=== PATIENT | male | born 1950 | race Caucasian/White ===

== ENCOUNTER 2024-07-18 08:24 | Outpatient (CLI) | payer MEDICARE, SELFPAY ==
[2024-07-18 10:23] LABS: Vitamin D 25 Hydroxy 38.7 ng/mL
[2024-07-18 11:19] LABS: Alanine Aminotransferase 27 U/L (6-50); Albumin Level 4.5 g/dL (3.5-5.1); Alkaline Phosphatase 61 U/L (38-126); Anion Gap 9 mmol/L (4-12); Aspartate Amino Transferase 33 U/L (17-59); Bilirubin,Total 1.6 mg/dL (0.2-1.3); Blood Urea Nitrogen 22 mg/dL (9-20); Calcium 9.3 mg/dL (8.4-10.2); Carbon Dioxide 26 mmol/L (22-30); Chloride 106 mmol/L (98-107); Cholesterol 198 mg/dL (0-200); Estimated Glomerular Filt Rate > 60; Glucose 98 mg/dL (65-110); HDL Direct 81 mg/dL; Sodium 141 mmol/L (137-145); Triglycerides 52 mg/dL (<150)
[2024-07-18 11:30] LABS: LDL Cholesterol Direct 88 mg/dL
[2024-07-18 11:43] LABS: Prostate Specific Antigen 7.7 ng/mL (< OR = 4.0)
== END 2024-07-18 08:25 | disposition home or self-care (01) ==
LOC: ANHLAB 08:26
PROVIDERS: PCP Emergency Medicine; Visit Provider Emergency Medicine
DX: E78.5 Hyperlipidemia, unspecified (principal); E55.9 Vitamin D deficiency, unspecified; Z12.5 Encounter for screening for malignant neoplasm of prostate
CPT/HCPCS: 36415; 80053; 80061; 82306; 84153; G0103

== ENCOUNTER 2024-07-26 14:33 | Outpatient (CLI) | payer MEDICARE, SELFPAY ==
--- NOTE | ~2024-07-26 | US_ITS ---
EXAMINATION: US carotid duplex BI DATE: 07/26/2024 15:30 INDICATION: Carotid atherosclerosis and stenosis TECHNIQUE: Grayscale, color Doppler, and pulsed Doppler images of the cervical carotid arteries were obtained. The degree of vessel stenosis is placed in one of the following categories: normal, <50%, 5 0-69%, >=70% but less than near-occlusion, near-occlusion, or total occlusion. Note that percent sten osis relative to normal distal artery lumen diameter is indirectly measured from velocity measurement s as described by Roland, et al. Radiology 2003; 229:340-346. COMPARISON: 03/27/2019 FINDINGS: RIGHT: The right common carotid artery (CCA) peak systolic velocity (PSV) is 53 cm/s. The right internal car otid artery (ICA) PSV is 100 cm/s. The right ICA end-diastolic velocity (EDV) is 22 cm/s. The right I CA/CCA PSV ratio is 1.9. Grayscale and color Doppler images yield an estimate of <50% diameter reduct ion from plaque in the ICA. The external carotid artery (ECA) PSV measurement was not recorded. There is antegrade flow in the right vertebral artery. LEFT: The left CCA PSV is 67 cm/s. The left ICA PSV is 100 cm/s. The left ICA EDV is 27 cm/s. The left ICA/ CCA PSV ratio is 1.5. Grayscale and color Doppler images yield an estimate of <50% diameter reduction from plaque in the ICA. The ECA PSV is 219 cm/s. There is antegrade flow in the left vertebral arter y. IMPRESSION: 1. <50% stenosis in the right internal carotid artery. 2. <50% stenosis in the left internal carotid artery. Reviewed, dictated and finalized at location A.
== END 2024-07-26 14:34 | disposition home or self-care (01) ==
PROVIDERS: PCP Emergency Medicine; Visit Provider Emergency Medicine
DX: R09.89 Other specified symptoms and signs involving the circulatory and respiratory systems (principal)
CPT/HCPCS: 93880

== ENCOUNTER 2024-08-11 00:53 | Day surgery (SDC) | payer MEDICARE, SELFPAY ==
[2024-08-01 16:20] VITALS: BMI 23.6
[2024-08-11 08:51] VITALS: BP 147/85; PULSE 92; RESP 18; TEMP 36.9; O2SAT 99
[2024-08-11] MEDS: LACTATED RINGERS 1,000 ML 150 ML IV CONT (08:59)
--- NOTE | 2024-08-11 09:10 | WPDANESEPPF ---
Anes - Initial Pre Proc Eval Procedure: Operation Date: 08/11/24 10:00 Proposed Procedures p Screening Colonoscopy - Dash Woody MD Date/Time: 08/11/24 09:10 Surgeon: Dash Woody MD Pre Op Diagnosis: neoplasm screening Patient Data Age: 74 Gender: M Height: 1.85 m Weight: 78.2 kg Last Vital Signs Temp 36.9 C 08/11/24 08:51 Pulse 92 08/11/24 08:51 Resp 18 08/11/24 08:51 BP 147/85 H 08/11/24 08:51 Pulse Ox 99 08/11/24 08:51 O2 Del Method Room Air 08/11/24 08:51 Allergies Allergy/AdvReac Type Severity Reaction Status Date / Time hydrocodone Allergy Unknown Nausea and Verified 08/11/24 08:49 Vomiting Penicillins Allergy Unknown Hives Verified 08/11/24 08:49 morphine AdvReac Mild NAUSEA AND Verified 08/11/24 08:49 VOMITING oxycodone AdvReac Mild NAUSEA AND Verified 08/11/24 08:49 VOMITING tramadol AdvReac Mild NAUSEA AND Verified 08/11/24 08:49 VOMITING Home Medications Medication Instructions Recorded Confirmed Type aspirin 81 mg tablet,delayed 81 mg PO DAILY 07/13/24 08/11/24 History release atorvastatin 20 mg tablet 20 mg PO DAILY 07/13/24 08/11/24 History benazepril 40 mg tablet 40 mg PO DAILY 07/13/24 08/11/24 History hydrochlorothiazide 12.5 mg tablet 12.5 mg PO DAILY 07/13/24 08/11/24 History ascorbic acid (vitamin C) 1 tab-cap PO DAILY 08/01/24 08/11/24 History glucosamine sulf dipot 2 cap PO DAILY 08/01/24 08/11/24 History chlr,msm,chond 550 mg-C 30 mg-indiana 1 mg capsule (Glucosamine Chondroitin) potassium gluconate 600 mg (99 mg) 600 mg PO DAILY 08/01/24 08/11/24 History tablet vitamin B complex 1 tablet PO DAILY 08/01/24 08/11/24 History Patient hx anesthesia problems: none Family hx anesthesia problems: none Results Review: All pre-operative results and documents have been reviewed as part of the pre-operative evaluation. [facility] Past Medical History Medical History Actinic keratosis of left holiness Acute nasopharyngitis (common cold) Acute viral conjunctivitis of both eyes Carotid artery disease Chronic bilateral low back pain without sciatica Chronic pain of right knee Dyslipidemia, goal LDL below 100 Elevated blood sugar level Elevated glucose Elevated prostate specific antigen (PSA) Essential (primary) hypertension Immunization counseling Laceration of face Monoarthritis, not elsewhere classified, unspecified knee Nonintractable headache Occlusion and stenosis of right carotid artery Other hyperlipidemia Pityriasis rosea Post-nasal drip Screening for blood or protein in urine Urinary retention Visit for suture removal Surgical History Surgical History H/O rotator cuff surgery History of carotid endarterectomy History of partial knee replacement Family History Family History Sibling Patient's sister is in good health Family history of chronic obstructive pulmonary disease Patient's sister is Patient's brother is Acute myocardial infarction Mother Family history of chronic obstructive pulmonary disease Patient's mother is Father Patient's father is Social History Social History Smoking status: Never smoker Alcohol intake: current Drinks per week: 5 Substance use: never Substance use type: does not use Do You Feel Safe in your Home?: Yes Lack of Transportation: No Lack of Food: Never True Current Housing: I Have Housing Concerned About Future Housing: No Difficulty Paying Gas/Electric Bills: No Difficulty Paying for Meds: No Currently Unemployed: YES Education: Associate Degree Difficulty w/ Childcare or Family Care: No Living arrangements: with family Spiritual care concerns: No Anes - Eval Final PreProcedure Day of Procedure 08/11/24 09:10 Patient weight: normal Heart: regular rate and rhythm Lungs: clear to auscultation Airway: Mallampati scale class II Neurological: alert and oriented Last oral intake: >/= 8 hours ASA classification: II Emergent: no Anesthetic plan: proceed Anesthesia type and monitoring: general GIVS and standard monitoring Results Review: All pre-operative results and documents have been reviewed as part of the pre-operative evaluation. Informed Consent: The patient's anesthetic plan and its attendant risks and benefits were discussed with the patient/family/POA. Questions were solicited and answers provided to the satisfaction of the patient/family/POA.
--- NOTE | 2024-08-11 09:49 | P.HP_ITS ---
H&P: HPI History of Present Illness Date/Time: 08/11/24 09:49 Chief Complaint: history of colon polyps Narrative: The patient has a history of colonic polyps, the last colonoscopy was 4 years ago Review of Systems Review of Systems: All systems reviewed & are unremarkable except as noted in HPI and below PMFSH Past Medical History Medical History Actinic keratosis of left gnosticist Acute nasopharyngitis (common cold) Acute viral conjunctivitis of both eyes Carotid artery disease Chronic bilateral low back pain without sciatica Chronic pain of right knee Dyslipidemia, goal LDL below 100 Elevated blood sugar level Elevated glucose Elevated prostate specific antigen (PSA) Essential (primary) hypertension Immunization counseling Laceration of face Monoarthritis, not elsewhere classified, unspecified knee Nonintractable headache Occlusion and stenosis of right carotid artery Other hyperlipidemia Pityriasis rosea Post-nasal drip Screening for blood or protein in urine Urinary retention Visit for suture removal Surgical History Surgical History H/O rotator cuff surgery History of carotid endarterectomy History of partial knee replacement Family History Family History Sibling Patient's sister is in good health Family history of chronic obstructive pulmonary disease Patient's sister is Patient's brother is Acute myocardial infarction Mother Family history of chronic obstructive pulmonary disease Patient's mother is Father Patient's father is Social History Social History Smoking status: Never smoker Alcohol intake: current Drinks per week: 5 Substance use: never Substance use type: does not use Do You Feel Safe in your Home?: Yes Lack of Transportation: No Lack of Food: Never True Current Housing: I Have Housing Concerned About Future Housing: No Difficulty Paying Gas/Electric Bills: No Difficulty Paying for Meds: No Currently Unemployed: YES Education: Associate Degree Difficulty w/ Childcare or Family Care: No Living arrangements: with family Spiritual care concerns: No Meds Home Medications and Allergies Home Medications Medication Instructions Recorded Confirmed Type aspirin 81 mg tablet,delayed 81 mg PO DAILY 07/13/24 08/11/24 History release atorvastatin 20 mg tablet 20 mg PO DAILY 07/13/24 08/11/24 History benazepril 40 mg tablet 40 mg PO DAILY 07/13/24 08/11/24 History hydrochlorothiazide 12.5 mg tablet 12.5 mg PO DAILY 07/13/24 08/11/24 History ascorbic acid (vitamin C) 1 tab-cap PO DAILY 08/01/24 08/11/24 History glucosamine sulf dipot 2 cap PO DAILY 08/01/24 08/11/24 History chlr,msm,chond 550 mg-C 30 mg-indiana 1 mg capsule (Glucosamine Chondroitin) potassium gluconate 600 mg (99 mg) 600 mg PO DAILY 08/01/24 08/11/24 History tablet vitamin B complex 1 tablet PO DAILY 08/01/24 08/11/24 History Allergies Allergy/AdvReac Type Severity Reaction Status Date / Time hydrocodone Allergy Unknown Nausea and Verified 08/11/24 08:49 Vomiting Penicillins Allergy Unknown Hives Verified 08/11/24 08:49 morphine AdvReac Mild NAUSEA AND Verified 08/11/24 08:49 VOMITING oxycodone AdvReac Mild NAUSEA AND Verified 08/11/24 08:49 VOMITING tramadol AdvReac Mild NAUSEA AND Verified 08/11/24 08:49 VOMITING Vital Signs Vital Signs - 24 hr 08/11/24 08:51 Temperature 98.5 F Pulse Rate 92 Respiratory Rate 18 Blood Pressure 147/85 H Pulse Oximetry 99 Oxygen Delivery Room Air Exam Const: General: cooperative and healthy appearing Resp: Effort & Inspection: normal respiratory effort and able to speak in complete sentences Auscultation: clear to auscultation bilaterally Cardio: Rate: regular rate Rhythm: regular rhythm GI: Inspection: normal to inspection GI Palp: No No hepatosplenomegaly present Auscultation: normal bowel sounds Rectal Exam: deferred Skin: General skin exam: normal color Psych: Appearance: grossly normal Mental Status: mental status grossly normal Assessment and Plan Assessment and plan (1) History of colonic polyps: Code(s): Z86.0100 - Personal history of colon polyps, unspecified Status: Acute Assessment and Plan: The patient is deemed a good candidate for the procedure. Consent signed. Will proceed.
[2024-08-11 10:13] VITALS: BP 86/56; PULSE 73; RESP 22; O2SAT 97
[2024-08-11 10:23] VITALS: BP 102/49; PULSE 74; RESP 16; O2SAT 99
[2024-08-11 10:33] VITALS: BP 113/63; PULSE 71; RESP 12; O2SAT 100
== END 2024-08-11 11:00 | disposition home or self-care (01) ==
PROVIDERS: PCP Emergency Medicine; Visit Provider Internal Medicine Gastroenterology
PROC: 0DJD8ZZ Inspection of Lower Intestinal Tract, Via Natural or Artificial Opening Endoscopic (ICD-10-PCS; CPT 45378; principal; 2024-08-11 10:00)
DX: Z12.11 Encounter for screening for malignant neoplasm of colon (principal); D12.8 Benign neoplasm of rectum; K57.30 Diverticulosis of large intestine without perforation or abscess without bleeding; I25.10 Atherosclerotic heart disease of native coronary artery without angina pectoris; I10 Essential (primary) hypertension; E78.2 Mixed hyperlipidemia; Z79.82 Long term (current) use of aspirin
CPT/HCPCS: 45385; 88305; J2003; J2704; J7120

== ENCOUNTER 2024-10-17 09:56 | Outpatient (CLI) | payer MEDICARE, SELFPAY ==
[2024-10-17 10:53] LABS: Alanine Aminotransferase 27 U/L (6-50); Albumin Level 4.3 g/dL (3.5-5.1); Alkaline Phosphatase 69 U/L (38-126); Anion Gap 7 mmol/L (4-12); Aspartate Amino Transferase 30 U/L (17-59); Bilirubin,Total 2.1 mg/dL (0.2-1.3); Blood Urea Nitrogen 22 mg/dL (9-20); Calcium 9.1 mg/dL (8.4-10.2); Carbon Dioxide 29 mmol/L (22-30); Chloride 101 mmol/L (98-107); Cholesterol 180 mg/dL (0-200); Estimated Glomerular Filt Rate > 60; Glucose 109 mg/dL (65-110); HDL Direct 75 mg/dL; Potassium 4.1 mmol/L (3.4-5.0); Sodium 137 mmol/L (137-145); Triglycerides 53 mg/dL (<150)
[2024-10-17 11:04] LABS: LDL Cholesterol Direct 79 mg/dL
[2024-10-17 11:24] LABS: Vitamin D 25 Hydroxy 44.4 ng/mL
--- OUTSIDE RECORDS SUMMARY | 2024-10-20 12:37 | XMS_ITS | Referral Summary ---
Author Organization [facility] Address [address] [place] [address] Care Team Providers Care Oncology Pharmacist Name Role Phone Unavailable Primary Care Provider Unavailabl e Source Comments [facility],non-[facility] Affiliates and Associated Physician Practices is amultiple site organization consisting of ambulatory clinics and hospital sitesin [place], [place], [place] and [place]. This disclosure is being madepursuant to the Care Everywhere program and may not contain all information available regarding this patient. Last updated 18.[facility] [employer] Social History Tobacco Use Types Packs/Day Years Used Date Smoking Tobacco: Never Assessed Sex and Gender Information Value Date Recorded Sex Assigned at Not on file Gender Identity Not on file Sexual Orientation Not on file Plan of Treatment Not on file
--- OUTSIDE RECORDS SUMMARY | 2024-10-20 12:37 | XMS_ITS | Clinical Summary ---
Author Organization [facility] Address [address] [address] Care Team Providers Care Glass Blowing Instructor Name Role Phone Unavailable Primary Care Provider Unavailabl e Source Comments [facility],non-owned Affiliates and Associated Physician Practices is amultiple site organization consisting of ambulatory clinics and hospital sitesin [place], [place], [place] and [place]. This disclosure is being madepursuant to the Care Everywhere program and may not contain all information available regarding this patient. Last updated 18.[facility] [employer] Social History Tobacco Use Types Packs/Day Years Used Date Smoking Tobacco: Never Assessed Sex and Gender Information Value Date Recorded Sex Assigned at Not on file Gender Identity Not on file Sexual Orientation Not on file Plan of Treatment Health Maintenance Due Date Last Done Comments HEPATITIS C SCREENING 02/07/1966 DTAP/TDAP/TD VACCINES (1 - Tdap) 02/11/1967 PNEUMOCOCCAL VACCINE 50+ (1 of 1 - PCV) 02/11/1998 ZOSTER VACCINE (1 of 2) 02/11/1998 Respiratory Syncytial Virus (RSV) Vaccine Pt: or over 60 yrs (1 - 1-dose 75+ series) 02/11/2023 COVID-19 VACCINE ( - 2023-2 5 season) 2024 INFLUENZA VACCINE (#1) 2024 DEPRESSION SCREENING 09/28/2024 MEDICARE AWV ? CALENDAR YEAR 2024 HEPATITIS B VACCINE Aged Out No longe r eligible based on patient's age to complete this topic HIB VACCINE Aged Out No longer eligi ble based on patient's age to complete this topic HPV VACCINE Aged Out No longer eligi ble based on patient's age to complete this topic MENINGOCOCCAL (Group B) VACCINE Aged Out No longer eligible based on patient's age to complete this topic MENINGOCOCCAL VACCINE Aged Out No jp anson eligible based on patient's age to complete this topic
--- OUTSIDE RECORDS SUMMARY | 2024-10-20 12:37 | XMS_ITS | Patient Health Summary ---
Author Organization [facility] Address [address] [place] [address] Care Team Providers Care Record Changer Tester Name Role Phone Unavailable Primary Care Provider Unavailabl e Note from [facility],non-owned Affiliates and Associated Physician Practices is amultiple site organization consisting of ambulatory clinics and hospital sitesin [place], [place], [place] and [place]. This disclosure is being madepursuant to the Care Everywhere program and may not contain all information available regarding this patient. Last updated 18.[facility] Social History Tobacco Use Types Packs/Day Years Used Date Smoking Tobacco: Never Assessed Sex and Gender Information Value Date Recorded Sex Assigned at Not on file Gender Identity Not on file Sexual Orientation Not on file Procedures * PATH CONSULT REFER SPECIMEN(Performed 05/21/1995) Results * PATH CONSULT REFER SPECIMEN (05/21/1995 9:50 AM CDT) Result CASE NUMBER [id number] [facility] PATH REPORT Comment: ORDERING PHYSICIAN ??[facility] SPECIMEN TYPE ?Muscle Biopsy ?THIS IS A CORRECTED REPORT ?? FOR PREVIOUSLY REPORTED VALUES, SEE [place] SYSTEM CLINICAL HISTORY ? Rule out Malini Gehrig disease. GROSS DESCRIPTION ? Please see technique section. *TECHNIQUE ? Frozen muscle was transported to [facility]. ??An H/E stain on the frozen sections was performed. Severe freeze artifact precludes further histochemical analysis. MICROSCOPIC DESCRIPTION ? Examination of the frozen and paraffin sections which were requested from [facility] reveals some variation in myofiber size with fiber diameters ranging from 70 to 120 microns. ??Occasional atrophic, angular fibers are present but groups of atrophic fibers are not seen. ??Occasional enlarged sarcolemmal nuclei are seen. ??(DEM/akn) DIAGNOSIS ? DIAGNOSIS ?? MUSCLE BIOPSY ? - SEE MICROSCOPIC DESCRIPTION AND NOTE. NOTE ?? It is not possible to make the diagnosis of amyotrophic lateral sclerosis on this material. ??The presence of atrophic, angular fibers, however, does suggest a denervation process. *ADDENDUM 1 ? Several additional sections reveal persistent freeze artifact within the muscle. ??This precludes histochemical study. Inner Tube Inserter ? Joellen Zimmerman PATHOLOGIST ?Jessica Schilling M.D. ELECTRONICALLY MYNORJESSICA POLANCO MISCELLANEOUS SAMPLES / Unknown 05/21/1995 9:50 AM CDT 05/21/1995 9:51 AM CDT Historical Provider LAB - PATHOLOGY/C YTOLOGY ORDERABLES [facility] PATH REPORT
== END 2024-10-17 09:57 | disposition home or self-care (01) ==
LOC: ANHLAB 09:57
PROVIDERS: PCP Emergency Medicine; Visit Provider Emergency Medicine
DX: E78.5 Hyperlipidemia, unspecified (principal); E55.9 Vitamin D deficiency, unspecified
CPT/HCPCS: 36415; 80053; 80061; 82306

== ENCOUNTER 2024-11-10 15:55 | Outpatient (CLI) | payer MEDICARE, SELFPAY ==
--- NOTE | ~2024-11-10 | XR_ITS ---
HISTORY: M25.562 - Pain in left knee COMPARISON: None TECHNIQUE: 2 views of the left knee were performed FINDINGS: No acute or subacute fracture. Medial tibiofemoral joint space narrowing is identified. Osteophytes of the tibial spine is identified. No suprapatellar joint effusion is identified. The infrapatellar joint space is clear. Within the lower soft tissues, incompletely evaluated on the current examination are multiple small r ounded radiolucent structures for which clinical correlation for the presence of infection versus pen etrating trauma is needed. IMPRESSION: Degenerative disease without acute fracture. Findings projecting over the gastrocnemius musculature for which either penetrating trauma versus inf ection is present, as detailed above. Reviewed, dictated and finalized at location A. BILITATION TECH IMPRESSION: Degenerative disease without acute fracture. Findings projecting over the gastrocnemius musculature for which either penetra ting trauma versus infection is present, as detailed above.
--- OUTSIDE RECORDS SUMMARY | 2024-11-10 16:00 | XMS_ITS | Referral Summary ---
Author Organization [facility] Address [address] [place] [address] Care Team Providers Care Donation Specialist Name Role Phone Unavailable Primary Care Provider Unavailabl e Source Comments [facility],non-[facility] Affiliates and Associated Physician Practices is amultiple site organization consisting of ambulatory clinics and hospital sitesin [place], [place], [place] and [place]. This disclosure is being madepursuant to the Care Everywhere program and may not contain all information available regarding this patient. Last updated 18.[facility] [employer] Social History Tobacco Use Types Packs/Day Years Used Date Smoking Tobacco: Never Assessed Sex and Gender Information Value Date Recorded Sex Assigned at Not on file Gender Identity Not on file Sexual Orientation Not on file Plan of Treatment Not on file
--- OUTSIDE RECORDS SUMMARY | 2024-11-10 16:00 | XMS_ITS | Clinical Summary ---
Author Organization [facility] Address [address] [place] [address] Care Team Providers Care Hog Dropper Name Role Phone Unavailable Primary Care Provider Unavailabl e Source Comments [facility],non-owned Affiliates and Associated Physician Practices is amultiple site organization consisting of ambulatory clinics and hospital sitesin [place], [place], [place] and [place]. This disclosure is being madepursuant to the Care Everywhere program and may not contain all information available regarding this patient. Last updated 18.[facility] [employer] Social History Tobacco Use Types Packs/Day Years [...] (#1) 2024 DEPRESSION SCREENING 09/28/2024 MEDICARE AWV CALENDAR YEAR 2024 HEPATITIS B VACCINE Aged [...]
--- OUTSIDE RECORDS SUMMARY | 2024-11-10 16:00 | XMS_ITS | Patient Health Summary ---
Author Organization [facility] Address [address] [place] [address] Care Team Providers Care Specimen Technician Name Role Phone Unavailable Primary Care Provider Unavailabl e Note from [facility],non-owned Affiliates and Associated Physician Practices is amultiple site organization consisting of ambulatory clinics and hospital sitesin [place], [place], [place] and [place]. This disclosure is being madepursuant to the Care Everywhere program and may not contain all information available regarding this patient. Last updated 18.[facility] Social History Tobacco Use Types Packs/Day Years Used Date Smoking Tobacco: Never Assessed Sex and Gender Information Value Date Recorded Sex Assigned at Not on file Gender Identity Not on file Sexual Orientation Not on file Procedures * PATH CONSULT REFER SPECIMEN(Performed 05/21/1995) Results * PATH CONSULT REFER SPECIMEN (05/21/1995 9:50 AM CDT) Result CASE NUMBER [id number] [facility] PATH REPORT Comment: ORDERING PHYSICIAN [facility] MATT SPECIMEN TYPE Muscle Biopsy THIS IS A CORRECTED REPORT FOR PREVIOUSLY REPORTED VALUES, SEE [facility] INFORMATION SYSTEM CLINICAL HISTORY Rule out Malini Gehrig disease. GROSS DESCRIPTION Please see technique section. *TECHNIQUE Frozen muscle was transported to [facility]. An H/E stain on the frozen sections was performed. Severe freeze artifact precludes further histochemical analysis. MICROSCOPIC DESCRIPTION Examination of the frozen and paraffin sections which were requested from [facility] reveals some variation in myofiber size with fiber diameters ranging from 70 to 120 microns. Occasional atrophic, angular fibers are present but groups of atrophic fibers are not seen. Occasional enlarged sarcolemmal nuclei are seen. (DEM/akn) DIAGNOSIS DIAGNOSIS MUSCLE BIOPSY - SEE MICROSCOPIC DESCRIPTION AND NOTE. NOTE It is not possible to make the diagnosis of amyotrophic lateral sclerosis on this material. The presence of atrophic, angular fibers, however, does suggest a denervation process. *ADDENDUM 1 Several additional sections reveal persistent freeze artifact within the muscle. This precludes histochemical study. Welfare Director Joellen Zimmerman PATHOLOGIST Jessica Greco M.D. ELECTRONICALLY MYNOR JESSICA GRECO MISCELLANEOUS SAMPLES / Unknown 05/21/1995 9:50 AM CDT 05/21/1995 9:51 AM CDT Historical Provider LAB - PATHOLOGY/C YTOLOGY ORDERABLES [facility] PATH REPORT
== END 2024-11-10 15:56 | disposition home or self-care (01) ==
PROVIDERS: PCP Emergency Medicine; Visit Provider Emergency Medicine
DX: M17.12 Unilateral primary osteoarthritis, left knee (principal); M62.89 Other specified disorders of muscle
CPT/HCPCS: 73560

== ENCOUNTER 2025-01-03 09:21 | Outpatient (CLI) | payer MEDICARE, SELFPAY ==
[2025-01-03 10:01] LABS: Alanine Aminotransferase 23 U/L (6-50); Albumin Level 4.5 g/dL (3.5-5.1); Alkaline Phosphatase 58 U/L (38-126); Anion Gap 6 mmol/L (4-12); Aspartate Amino Transferase 25 U/L (17-59); Bilirubin,Total 1.5 mg/dL (0.2-1.3); Blood Urea Nitrogen 21 mg/dL (9-20); Carbon Dioxide 31 mmol/L (22-30); Chloride 104 mmol/L (98-107); Cholesterol 168 mg/dL (0-200); Estimated Glomerular Filt Rate > 60; Glucose 123 mg/dL (65-110); HDL Direct 65 mg/dL; Sodium 141 mmol/L (137-145); Triglycerides 71 mg/dL (<150)
--- OUTSIDE RECORDS SUMMARY | 2025-01-03 10:09 | XMS_ITS | Clinical Summary ---
Author Organization [facility] Address [address] [place] [address] Care Team Providers Care Correctional Counselor Name Role Phone Unavailable Primary Care Provider Unavailabl e Source Comments [facility],non-owned Affiliates and Associated Physician Practices is amultiple site organization consisting of ambulatory clinics and hospital sitesin [place], [place], [place] and [place]. This disclosure is being madepursuant to the Care Everywhere program and may not contain all information available regarding this patient. Last updated 18.[facility] [employer] Social History Tobacco Use Types Packs/Day Years [...] VACCINE ( - 2023-2 5 season) 2024 DEPRESSION SCREENING 09/28/2024 MEDICARE AWV CALENDAR YEAR 2024 INFLUENZA VACCINE (Season Ended) 2025 HEPATITIS B VACCINE Aged Out No longe r eligible based on patient's age to complete this topic HIB VACCINE Aged Out No longer eligi ble based on patient's age to complete this topic HPV VACCINE Aged Out No longer eligi ble based on patient's age to complete this topic MENINGOCOCCAL (Group B) VACC INE SHARED DECISION-MAKING Aged Out No longer eligibl e based on patient's age to complete this topic MENINGOCOCCAL GROUPS A/C/Y/W VACCINE Aged Out No longer eligible b ased on patient's age to complete this topic
[2025-01-03 10:12] LABS: LDL Cholesterol Direct 71 mg/dL
[2025-01-03 11:01] LABS: Vitamin D 25 Hydroxy 41.4 ng/mL
== END 2025-01-03 09:22 | disposition home or self-care (01) ==
LOC: ANHLAB 09:22
PROVIDERS: PCP Emergency Medicine; Visit Provider Emergency Medicine
DX: E78.5 Hyperlipidemia, unspecified (principal); E55.9 Vitamin D deficiency, unspecified
CPT/HCPCS: 36415; 80053; 80061; 82306

== ENCOUNTER 2025-01-12 14:15 | Outpatient (CLI) | payer MEDICARE, SELFPAY ==
--- OUTSIDE RECORDS SUMMARY | 2025-01-12 14:33 | XMS_ITS | Clinical Summary ---
Author Organization [facility] Address [address] [address] Care Team Providers Care Analyst Sales Name Role Phone Unavailable Primary Care Provider Unavailabl e Source Comments [facility],non-owned Affiliates and Associated Physician Practices is amultiple site organization consisting of ambulatory clinics and hospital sitesin [place], [place], [place] and [place]. This disclosure is being madepursuant to the Care Everywhere program and may not contain all information available regarding this patient. 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
[2025-01-12 19:40] LABS: Free T3 3.58 pg/mL (2.45-5.93); Free T4 Free Thyroxine 1.04 ng/dL (0.78-2.19)
[2025-01-12 21:11] LABS: Folic Acid 12.2 ng/mL (2.76->20)
[2025-01-12 21:34] LABS: Hemoglobin A1C 5.8 % (<5.7)
== END 2025-01-12 14:16 | disposition home or self-care (01) ==
LOC: ANHLAB 14:20
PROVIDERS: PCP Emergency Medicine; Visit Provider Emergency Medicine
DX: E11.9 Type 2 diabetes mellitus without complications (principal); E53.8 Deficiency of other specified B group vitamins; E29.1 Testicular hypofunction
CPT/HCPCS: 36415; 82607; 82746; 83036; 84439; 84481

== ENCOUNTER 2025-02-03 14:28 | Outpatient (CLI) | payer MEDICARE, SELFPAY ==
--- OUTSIDE RECORDS SUMMARY | 2025-02-03 14:30 | XMS_ITS | Clinical Summary ---
Author Organization [facility] Address [address] [place] [place] [address] Care Team Providers Care Coater Operator Insulation Board Name Role Phone Unavailable Primary Care Provider Unavailabl e Source Comments [facility],non-owned Affiliates and Associated Physician Practices is amultiple site organization consisting of ambulatory clinics and hospital sitesin [place], [place], [place] and [place]. This disclosure is being madepursuant to the Care Everywhere program and may not contain all information available regarding this patient. 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
[2025-02-09 10:49] LABS: Testosterone Free 44.4 pg/mL (30.0-135.0); Testosterone Total 365 ng/dL (250-1100)
== END 2025-02-03 14:29 | disposition home or self-care (01) ==
LOC: ANHLAB 14:28
PROVIDERS: PCP Emergency Medicine; Visit Provider Emergency Medicine
DX: E34.9 Endocrine disorder, unspecified (principal)
CPT/HCPCS: 36415; 84402; 84403

== ENCOUNTER 2025-02-08 13:00 | Outpatient (CLI) | payer MEDICARE, SELFPAY ==
--- OUTSIDE RECORDS SUMMARY | 2025-02-08 13:16 | XMS_ITS | Clinical Summary ---
Author Organization [facility] Address [address] [place] [address] Care Team Providers Care Bee Producer Name Role Phone Unavailable Primary Care Provider Unavailabl e Source Comments [facility],non-owned Affiliates and Associated Physician Practices is amultiple site organization consisting of ambulatory clinics and hospital sitesin [place], [place], [place] and [place]. This disclosure is being madepursuant to the Care Everywhere program and may not contain all information available regarding this patient. 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
[2025-02-08 14:14] LABS: Prostate Specific Antigen 7.3 ng/mL (< OR = 4.0)
== END 2025-02-08 13:01 | disposition home or self-care (01) ==
LOC: ANHLAB 13:07
PROVIDERS: PCP Emergency Medicine; Visit Provider Urology
DX: R97.20 Elevated prostate specific antigen [PSA] (principal)
CPT/HCPCS: 36415; 84153

== ENCOUNTER 2025-05-30 15:06 | Outpatient (CLI) | payer MEDICARE, SELFPAY ==
--- OUTSIDE RECORDS SUMMARY | 2025-05-30 15:16 | XMS_ITS | Clinical Summary ---
Author Organization [facility] Address [address] [place] [address] Care Team Providers Care Satellite Communications Engineer Name Role Phone Unavailable Primary Care Provider Unavailabl e Source Comments [facility],non-owned Affiliates and Associated Physician Practices is amultiple site organization consisting of ambulatory clinics and hospital sitesin [place], [place] and [place]. This disclosure is being madepursuant to the Care Everywhere program and may not contain all information available regarding this patient. 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
--- NOTE | 2025-05-30 15:30 | ECG_ITS ---
Test Date: 2025-05-30 15:40:12 Measurements Intervals [place] Rate: 70 P: -1 SC: 174 QRS: 72 QRSD: 90 T: 52 QT: 379 QTc: 410 Interpretive Statements SINUS RHYTHM NORMAL ELECTROCARDIOGRAM No previous ECG available for comparison Electronically Signed On 05-30-2025 16:12:12 CDT by Marquise Tobias M.D.
[2025-05-30 15:56] LABS: Hematocrit 44.7 % (42.0-52.0); Hemoglobin 15.0 g/dL (14.0-18.0); Immature Granulocyte Percent A 0.4 % (0-0.5); Lymphocytes Absolute Auto 1.43 K/mm3 (0.9-3.2); Mean Corpuscular HGB Conc 33.6 g/dl (32-36); Mean Corpuscular Hemoglobin 30.9 pg (26-34); Mean Corpuscular Volume 92.2 fl (80-100); Nucleated Red Blood Cells Absolute Auto 0.000 K/mm3 (0.0-0.012); Nucleated Red Blood Cells Perc 0.0 % (0.0-0.2); Platelet Count Result 183 k/mm3 (150-375); Red Blood Count 4.85 M/mm3 (4.6-6.20); White Blood Count 8.2 K/mm3 (4.5-10.0)
== END 2025-05-30 15:07 | disposition home or self-care (01) ==
PROVIDERS: PCP Emergency Medicine; Visit Provider Surgery
DX: K42.9 Umbilical hernia without obstruction or gangrene (principal); Z01.818 Encounter for other preprocedural examination; E78.5 Hyperlipidemia, unspecified; I77.9 Disorder of arteries and arterioles, unspecified; I10 Essential (primary) hypertension
CPT/HCPCS: 36415; 85025; 86850; 86900; 86901; 93005

== ENCOUNTER 2025-06-05 10:53 | Outpatient (CLI) | payer MEDICARE, SELFPAY ==
--- NOTE | ~2025-06-05 | XR_ITS ---
EXAM/ PROCEDURE: XR foot LT 2V - 06/05/2025 11:04 CDT HISTORY: 75 years old Male with M79.89 - Other specified soft tissue disorders COMPARISON: None available TECHNIQUE: Three view(s) FINDINGS/ IMPRESSION: There are no fractures or dislocations.Joint space narrowing, subchondral sclerosis, subchondral cyst formation and osteophyte formation, compatible with mild osteoarthritis. Atherosclerotic calcifications are seen. Reviewed, dictated and finalized at location N.
--- NOTE | ~2025-06-05 | XR_ITS ---
EXAM/ PROCEDURE: XR ankle LT 2V - 06/05/2025 11:04 CDT HISTORY: 75 years old Male with - Effusion, left ankle STRAINED ANKLE/PAIN DISTAL ANKLE COMPARISON: None available TECHNIQUE: Three view(s) FINDINGS/ IMPRESSION: There are no fractures or dislocations.Joint space narrowing, subchondral sclerosis, subchondral cyst formation and osteophyte formation, compatible with mild osteoarthritis. Atherosclerotic calcifications seen. Reviewed, dictated and finalized at location N.
--- OUTSIDE RECORDS SUMMARY | 2025-06-05 11:24 | XMS_ITS | Clinical Summary ---
Author Organization [facility] Address [address] [place] [address] Care Team Providers Care Advertising Associate Name Role Phone Unavailable Primary Care Provider Unavailabl e Source Comments [facility],non-owned Affiliates and Associated Physician Practices is amultiple site organization consisting of ambulatory clinics and hospital sitesin [place], [place], [place] and [place]. This disclosure is being madepursuant to the Care Everywhere program and may not contain all information available regarding this patient. 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 Gender Identity Not on file Sexual Orientation Not on file Plan of Treatment Health Maintenance Due Date Last Done Comments HEPATITIS C SCREENING 02/07/1966 DTAP/TDAP/TD VACCINES (1 - Tdap) 02/11/1967 PNEUMOCOCCAL VACCINE 50+ (1 of 1 - PCV) 02/11/1998 ZOSTER VACCINE (1 of 2) 02/11/1998 Respiratory Syncytial Virus (RSV) Vaccine Pt: or over 60 yrs (1 - 1-dose 75+ series) 02/11/2023 DEPRESSION SCREENING 09/28/2024 MEDICARE AWV CALENDAR YEAR 2024 COVID-19 VACCINE ( - 2023-2 5 season) 2025 INFLUENZA VACCINE (#1) 2025 HEPATITIS B VACCINE [...] Subscriber ID:Not on file (Home) Address: [place] [address] Payer ID:Not on file Group ID:Not on file Type:Self Pay Address: [place], [place]
== END 2025-06-05 10:54 | disposition home or self-care (01) ==
PROVIDERS: PCP Emergency Medicine; Visit Provider Emergency Medicine
DX: M25.472 Effusion, left ankle (principal); M79.89 Other specified soft tissue disorders
CPT/HCPCS: 73600; 73620

== ENCOUNTER 2025-06-07 02:12 | Day surgery (SDC) | payer MEDICARE, SELFPAY ==
[2025-05-23 10:19] VITALS: BMI 23.7
--- NOTE | 2025-05-23 10:36 | PC.NURSE ---
Report to the Outpatient Waiting Room, entrance under the green pavilion located off [facility], at time ___08:00am____ on date __06/07/25 . Planned Procedure Time: _10:00am .? Time changes happen often and if your time is changed the preop area will call you the afternoon before. - You and your visitor will be asked to self-screen and do not enter if you have any COVID symptoms. Please call surgeon if you need to reschedule. - A mask is optional within the hospital at this time. Patients may have clear liquids (water, carbonated beverages, clear teas, apple juice) until 3 hours prior to surgery with a maximum of 20 ounces. - No food from midnight until time of surgery and no smoking, or chewing tobacco (or any form of nicotine). No chewing gum, candy or mints (0700am). Take only the following medications with a SIP of water on the morning of surgery: __NONE DO NOT STOP ANY OF YOUR OTHER PRESCRIPTION MEDICATIONS PRIOR TO SURGERY EXCEPT THE FOLLOWING Hold all vitamins and supplements for 3 days per anesthesiologist. Medications to discontinue per physician NONE Date to take last dose NONE Please no make-up, nail palauan, hairspray, perfume, deodorant, or body powder the day of surgery.? No jewelry (including any body piercings) or valuables the day of surgery, leave them at home.? Please take a shower or bath the night before, or the morning of, surgery with an antibacterial soap.? Wear comfortable, loose fitting clothing.? - Jewelry must be removed prior to entering the operating room.? Rings and piercings that are not removed may be cut off. - The hospital will not accept responsibility for valuables.? - Please leave all valuables, including medications, at home the day of surgery. If you are going home after surgery, a licensed sales warehouse driver must drive you home.? - NO public transportation without another adult if you receive anesthesia. - We recommend that an adult stay with you for 24 hours following discharge. - We also recommend that you do not drive, make important decision, drink alcoholic beverages, or take any drugs that were not prescribed by your health care provider for at least 24 hours after your discharge time. Follow any additional instructions given to you from your surgeon. Telephone instructions given to ___Patient and asked if any additional questions and then verbalized understanding. Patient advised to call surgeon office or pre surgery nurse liaison [phone] if any additional questions.
--- NOTE | 2025-06-06 08:53 | P.SS_ITS ---
Same Day Admit/Disch: HPI History of Present Illness Chief complaint: Umb Hernia- 2cm Narrative: Karlo Figueroa is a 75 year old male who has a 2-month history of supraumbilical bulging that extends from his epigastric abdomen down to his umbilicus, as well as reducible bulging at his umbilicus. Nontender and only bulges with working out, vigorous activities, and changing from [id number] position. No abdominal distension, nausea, vomiting, change in bowel habits, or other obstructive symptoms. [facility] Past Medical History Medical History Fatigue Peripheral neuropathy Elevated prostate specific antigen (PSA) Nonintractable headache Laceration of face Visit for suture removal Urinary retention Screening for blood or protein in urine Post-nasal drip Pityriasis rosea Other hyperlipidemia Occlusion and stenosis of right carotid artery Monoarthritis, not elsewhere classified, unspecified knee Immunization counseling Essential (primary) hypertension Elevated glucose Elevated blood sugar level Dyslipidemia, goal LDL below 100 Chronic pain of right knee Chronic bilateral low back pain without sciatica Acute viral conjunctivitis of both eyes Acute nasopharyngitis (common cold) Actinic keratosis of left yarsani Carotid artery disease Surgical History Surgical History (Reviewed 06/07/25 @ :28 by Bladimir Galan MD) History of partial knee replacement H/O rotator cuff surgery History of carotid endarterectomy Family History Family History Sibling Patient's sister is in good health Family history of chronic obstructive pulmonary disease Patient's sister is Patient's brother is Acute myocardial infarction Heart disease Mother Family history of chronic obstructive pulmonary disease Patient's mother is Heart disease Father Patient's father is Heart disease Social History Social History Smoking status: Former smoker Second hand tobacco smoke exposure: No Alcohol intake: current Drinks per week: 4 Substance use: never Substance use type: does not use Do You Feel Safe in your Home?: Yes Lack of Transportation: No Lack of Food: Never True Current Housing: Decline to Answer Concerned About Future Housing: Decline to Answer Difficulty Paying Gas/Electric Bills: Decline to Answer Difficulty Paying for Meds: Decline to Answer Currently Unemployed: Decline to Answer Education: Decline to Answer Difficulty w/ Childcare or Family Care: Decline to Answer Living arrangements: with family Spiritual care concerns: No Same Day Admit/Disch: Med Pre-admit Medications Home Medications ?Medication ?Instructions ?Recorded ?Confirmed ?Type aspirin 81 mg tablet,delayed 81 mg PO DAILY 07/13/24 0 05/23/25 History release atorvastatin 20 mg tablet 20 mg PO DAILY 07/13/2405/29 History ascorbic acid (vitamin C) 1 tab-cap PO DAILY 08/01/24 05/23/25 History vitamin B complex 1 tablet PO DAILY 08/01/24 0 05/23/25 History latanoprost 0.005 % eye drops 1 drp EACH EYE DAILY #7. 5 mL 10/12/24 05/23/25 Rx benazepril 40 mg tablet 40 mg PO DAILY #90 tabs 03/2206/07/25 Rx testosterone 1 % (50 mg/5 gram) 1 packet transdermal D AILY #150 02/22/25 05/23/25 Rx transdermal gel packet (AndroGel) grams magnesium oxide 400 mg PO DAILY 05/23/25 History ibuprofen 600 mg tablet 600 mg PO Q6H PRN pain #14 t abs 06/07/25 Rx ondansetron 4 mg disintegrating 4 mg PO Q6H PRN nausea and 06/07/25 Rx tablet vomiting #14 tabs oxycodone-acetaminophen 5 mg-325 1 - 2 tablet PO Q6H P RN pain #20 06/07/25 Rx mg tablet (Percocet) tabs Exam Const: General: comfortable, no acute distress, alert and awake HENMT: Head: normocephalic and atraumatic Mouth: Yes Normal oral and palatal mucosa present Eyes: Conjunctivae: conjunctivae normal Pupils: Equal, round and reactive pupils present EOM: EOMs intact bilaterally Neck: Neck: normal visual inspection, no lymphadenopathy and nontender Resp: Effort & Inspection: normal respiratory effort Auscultation: clear to auscultation bilaterally Cardio: Rate: regular rate Rhythm: regular rhythm Heart sounds: no gallops, no murmurs and no rubs GI: Inspection: non-distended, visible herniation ( umbilicus) and other ( large diastasis) GI Palp: Yes Soft to palpation, No Tenderness to palpation present (GI), No Hepatomegaly present, No Splenomegaly present and Yes Hernia present umbilical < 3 cm ( reducible) Skin: Lesions: no lesions Rashes: no rashes Neuro: General: no focal motor deficits and CN's II-XI intact bilaterally Cranial nerves: Yes Equal, round and reactive pupils present, Yes Bilaterally intact EOM present, Yes facial symmetry and Yes Midline tongue present Speech: normal speech Motor exam (neuro): 5/5 motor strength present throughout and Motor abnormalities not present Extrem: General: no clubbing, cyanosis or edema and edema Psych: Affect: normal affect Thought process: Normal thought process present Insight: Good insight present (Psych) DS: Summary Time Spent with Patient Time attestation: Total time spent providing and/or coordinating discharge services: DS: Admitting Diagnosis Discharge Date 06/07/2025 Admitting Diagnosis * umbilical hernia, reducible, 2 cm defect- plan to proceed with robotic laparoscopic repair using mesh. The procedure was discussed thoroughly with the patient including the risks, benefits, and the use of mesh. The usual length of time for the surgery as well has recovery. Has been discussed. All questions were answered. He agrees to go ahead. * diastasis recti * Essential hypertension DS: Discharge Diagnosis Discharge Diagnosis (1) Umbilical hernia without obstruction or gangrene: Code(s): K42.9 - Umbilical hernia without obstruction or gangrene Status: Chronic Assessment and Plan: Robotic laparoscopic repair with mesh performed by Dr. Valdivia 06/07/2025 Discharge Plan Discharge Patient Disposition: Home Discharge Instructions: 1. May shower the day after surgery over incisions. 2. Call office for: -Wound increasingly painful or bleeding -Vomiting -Fever of greater than 101 degrees 3. Fluid will accumulate under the umbilical skin creating a protrusion. This is called a seroma. It will go away on its own. 4. If no bowel movement for three days, take 1 oz. (30 ml) Milk of Magnesia, if no results, take Fleets enema. 5. No heavy lifting > 15-20 pounds for 2 weeks. 6. No driving for 3 days or while taking narcotic pain medications. 7. Up walking 10-30 minutes three times per day. 8. Resume previous home medications. 9. Follow-up 10-14 days in office for wound check or as previously scheduled. 10. Prescription sent to your pharmacy for 600 mg ibuprofen as needed for pain. Although listed as an allergy, I also prescribed Percocet which is Tylenol with oxycodone. If this causes nausea, Zofran has also been prescribed which should help with the nausea. These are p.r.n. medications, you do not have to take them unless you need to for postoperative pain relief. You may also take plain Tylenol as well. 11. NUTRITION: Start out by drinking fluids and increase your diet as tolerated. If you experience nausea, try dry toast, crackers, and 7-UP. If nausea or vomiting persists, contact your surgeon?s office. Patient Language: Azeri Stand Alone Forms: General Discharge Instructions Follow-up/Referrals: Ethan Valdivia MD [Physician, General Surgery] - 2 Weeks Discharge Medications: New oxycodone-acetaminophen [Percocet] 5-325 mg tablet 1 - 2 tablet PO Q6H PRN (Reason: pain) Qty: 20 0RF ibuprofen 600 mg tablet 600 mg PO Q6H PRN (Reason: pain) Qty: 14 0RF ondansetron 4 mg tablet,disintegrating 4 mg PO Q6H PRN (Reason: nausea and vomiting) Qty: 14 0RF Continued aspirin 81 mg tablet,delayed release (DR/EC) 81 mg PO DAILY atorvastatin 20 mg tablet 20 mg PO DAILY latanoprost 0.005 % drops 1 drp EACH EYE DAILY Qty: 7.5 2RF Patient Comments: RIght EYE testosterone [AndroGel] 1 % (50 mg/5 gram) gel in packet 1 packet transdermal DAILY Qty: 150 2RF vitamin B complex Tablet 1 tablet PO DAILY ascorbic acid (vitamin C) 1 tab-cap PO DAILY magnesium oxide 400 mg magnesium capsule 400 mg PO DAILY benazepril 40 mg tablet 40 mg PO DAILY Qty: 90 2RF
[2025-06-07] VITALS (8 sets, daily range): BP systolic 84–155; BP diastolic 35–99; PULSE 61–81; RESP 12–18; TEMP 36.4–36.5; O2SAT 98–100; BMI 22.8
--- NOTE | 2025-06-07 07:01 | WPDHPUPDATE1 ---
History and Physical Update Update Date/Time: 06/07/25 07:01 History and Physical has been reviewed, including an updated exam of the patient. There are NO changes in the patient's condition. Risks, benefits, and alternatives have been discussed and questions answered. Patient agrees to proceed with procedure.
[2025-06-07] MEDS: ACETAMINOPHEN 500 MG TABLET 1000 MG PO (08:59)
[2025-06-07] MEDS: KETOROLAC 15 MG/ML VIAL (*BKC) IV PUSH (08:59)
--- NOTE | 2025-06-07 09:28 | WPDANESEPPF ---
Anes - Initial Pre Proc Eval Procedure: Operation Date: 06/07/25 10:00 Proposed Procedures p Robotic Repair Umbilical Hernia with Mesh - Ethan Valdivia MD Date/Time: 06/07/25 09:28 Surgeon: Ethan Valdivia MD Pre Op Diagnosis: Umb Hernia- 2cm Patient Data Age: 75 Gender: M Height: 1.85 m Weight: 81.6 kg Allergies Allergy/AdvReac Type Severity Reaction Status Date / Time Penicillins Allergy Intermediate Difficulty Verified 06/07/25 08:27 Breathing hydrocodone Allergy Unknown Difficulty Verified 06/07/25 08:27 Breathing morphine AdvReac Intermediate Difficulty Verified 06/07/25 08:27 Breathing oxycodone AdvReac Intermediate Difficulty Verified 06/07/25 08:27 Breathing tramadol AdvReac Intermediate Difficulty Verified 06/07/25 08:27 Breathing Home Medications ?Medication ?Instructions ?Recorded ?Confirmed ?Type aspirin 81 mg tablet,delayed 81 mg PO DAILY 07/13/24 05/23/25 History release atorvastatin 20 mg tablet 20 mg PO DAILY 07/13/24 06/07/25 History ascorbic acid (vitamin C) 1 tab-cap PO DAILY 08/01/24 05/23/25 History vitamin B complex 1 tablet PO DAILY 08/01/24 05/23/25 History latanoprost 0.005 % eye drops 1 drp EACH EYE DAILY #7.5 mL 10/12/24 05/23/25 Rx benazepril 40 mg tablet 40 mg PO DAILY #90 tabs 01/31/25 06/07/25 Rx testosterone 1 % (50 mg/5 gram) 1 packet transdermal DAILY #150 02/22/25 05/23/25 Rx transdermal gel packet (AndroGel) grams magnesium oxide 400 mg PO DAILY 05/23/25 05/23/25 History Patient hx anesthesia problems: none Family hx anesthesia problems: none Results Review: All pre-operative results and documents have been reviewed as part of the pre-operative evaluation. [facility] Past Medical History Medical History Fatigue Peripheral neuropathy Elevated prostate specific antigen (PSA) Nonintractable headache Laceration of face Visit for suture removal Urinary retention Screening for blood or protein in urine Post-nasal drip Pityriasis rosea Other hyperlipidemia Occlusion and stenosis of right carotid artery Monoarthritis, not elsewhere classified, unspecified knee Immunization counseling Essential (primary) hypertension Elevated glucose Elevated blood sugar level Dyslipidemia, goal LDL below 100 Chronic pain of right knee Chronic bilateral low back pain without sciatica Acute viral conjunctivitis of both eyes Acute nasopharyngitis (common cold) Actinic keratosis of left sabianist Carotid artery disease Surgical History Surgical History History of partial knee replacement H/O rotator cuff surgery History of carotid endarterectomy Family History Family History Sibling Patient's sister is in good health Family history of chronic obstructive pulmonary disease Patient's sister is Patient's brother is Acute myocardial infarction Heart disease Mother Family history of chronic obstructive pulmonary disease Patient's mother is Heart disease Father Patient's father is Heart disease Social History Social History Smoking status: Former smoker Second hand tobacco smoke exposure: No Alcohol intake: current Drinks per week: 4 Substance use: never Substance use type: does not use Do You Feel Safe in your Home?: Yes Lack of Transportation: No Lack of Food: Never True Current Housing: Decline to Answer Concerned About Future Housing: Decline to Answer Difficulty Paying Gas/Electric Bills: Decline to Answer Difficulty Paying for Meds: Decline to Answer Currently Unemployed: Decline to Answer Education: Decline to Answer Difficulty w/ Childcare or Family Care: Decline to Answer Living arrangements: with family Spiritual care concerns: No Anes - Eval Final PreProcedure Day of Procedure 06/07/25 09:28 Patient weight: normal Heart: regular rate and rhythm Lungs: clear to auscultation Airway: Mallampati scale class II Neurological: alert and oriented Last oral intake: >/= 8 hours ASA classification: III Emergent: no Anesthetic plan: proceed Anesthesia type and monitoring: general ETT and standard monitoring Results Review: All pre-operative results and documents have been reviewed as part of the pre-operative evaluation. Informed Consent: The patient's anesthetic plan and its attendant risks and benefits were discussed with the patient/family/POA. Questions were solicited and answers provided to the satisfaction of the patient/family/POA.
[2025-06-07] MEDS: ceFAZolin 2 GM in SODIUM CHLORIDE 0.9% IV 50 ML 100 ML IVPB (09:43)
[2025-06-07] MEDS: BUPIVACAINE/EPINEPHRINE 0.5% 50 ML VIAL 30 ML INFILTRATE (10:22)
[2025-06-07] MEDS: KETOROLAC 30 MG/ML VIAL (*BKC) IV PUSH (11:20)
[2025-06-07] MEDS: LACTATED RINGERS 1,000 ML 30 ML IV CONT ×2 (11:37)
--- NOTE | 2025-06-07 11:58 | W.PM.PROC2 ---
Procedure Note - Detailed Date of Procedure 06/07/25 Pre-op Diagnosis Umb Hernia- 2cm Post-op Diagnosis Same Procedure Performed Robotic laparoscopic repair umbilical hernia with 2 cm defect using mesh Surgeon Ethan Valdivia MD [employer] Anesthesia General and Local Indications Patient came to the office complaining of a midline abdominal bulge. This was actually a diastasis and I explained this to him. He also had an umbilical hernia which protrudes and is uncomfortable. The defect was estimated at 2 cm. He is taken to surgery now for robotic laparoscopic repair of umbilical hernia with mesh. Findings 2 cm umbilical hernia Description of Procedure Patient was taken to surgery and induced into general anesthesia. The abdomen is prepped and draped. The left side was slightly elevated. The table was flexed in the center. Trocars were placed in the left abdomen in the usual fashion. [employer] 5 mm port was placed 1st and then the robotic ports were placed under direct visualization. The robotic arms were brought into the field and docked, the instruments were targeted. The surgeon went to the console and saw the umbilical hernia. Dissection was carried out removing the midline properitoneal fat and reducing the fatty contents of the hernia. Care was taken to avoid injury to the skin. The falciform ligament was also taken down cephalad so there would be room for the mesh in this position. The properitoneal fat was taken down in a caudal manner so also there would be room for mesh placement such that the mesh would be in direct apposition to the abdominal wall. 0 Stratafix was then used and the hernia defect was closed in a longitudinal fashion. A 15 x [address] mesh was then introduced. The residual Stratafix was advanced through the center of the mesh and the mesh was held to the underside of the hernia repair using the Stratafix. Two 0 V lock was then used to suture in continuous fashion the outer circumference of the mesh to the anterior abdominal wall. The mesh was placed there under mild tension and some residual Stratafix and V lock suture were used to secure the midportion of the mesh to the anterior abdominal wall to ensure good incorporation. Once this was complete, we retrieved all of the needles. All looked good. The mesh was in good position. The instruments were removed and the robot was undocked. We evacuated CO2 and then removed the trocars. Skin wounds were closed with subcuticular 4-0 Monocryl skin suture. The wounds were dressed with Exofin surgical adhesive. Patient was awakened and taken to recovery in good condition. Sponge and needle counts were correct x2. Implants 15 x [address] hernia mesh Estimated Blood Loss -5 Drains No Packing No Pathology None sent Complications None Condition Stable Disposition PACU [facility] Billing Surgery - Charge Forward: Surgery Billing (Robotic laparoscopic repair 2 cm umbilical hernia with mesh)
== END 2025-06-07 13:35 | disposition home or self-care (01) ==
PROVIDERS: PCP Emergency Medicine; Visit Provider Surgery
PROC: (CPT 49591; principal; 2025-06-07 10:00)
DX: K42.9 Umbilical hernia without obstruction or gangrene (principal); G89.18 Other acute postprocedural pain; I10 Essential (primary) hypertension; E78.49 Other hyperlipidemia; I25.10 Atherosclerotic heart disease of native coronary artery without angina pectoris; G62.9 Polyneuropathy, unspecified; R33.9 Retention of urine, unspecified; L57.0 Actinic keratosis; R53.83 Other fatigue; M13.169 Monoarthritis, not elsewhere classified, unspecified knee; G89.29 Other chronic pain; M25.561 Pain in right knee; M54.50 Low back pain, unspecified; Z79.82 Long term (current) use of aspirin; Z79.1 Long term (current) use of non-steroidal anti-inflammatories (NSAID); Z79.891 Long term (current) use of opiate analgesic; Z98.890 Other specified postprocedural states; Z87.891 Personal history of nicotine dependence; Z86.79 Personal history of other diseases of the circulatory system; Z82.49 Family history of ischemic heart disease and other diseases of the circulatory system
CPT/HCPCS: 49591; S2900; J0690; A9270; C1781; J1100; J1885; J2003; J2405; J2704; J3010; J7120